=== PATIENT | male | born 1965 | race Two or more races ===

== ENCOUNTER 2019-03-25 22:32 | Inpatient (IN) | payer MEDICAID ==
[~2019-03-25] VITALS: Ht 160 cm; Wt 85.3 kg
[2019-03-26] VITALS (7 sets, daily range): BP systolic 111–116; BP diastolic 50–69
--- NOTE | 2019-03-26 00:15 | NUR ---
MS CERTIFIED MEDICAL TECHNICIAN NOTE: PT ADMITTED FROM [facility] VIA [facility] WITH ADMITTING DIAGNOSIS OF PERINEAL ABSCESS. PT IS ALERT AND ORIENTED X3, BRUNEIAN SPEAKING ONLY. AT BEDSIDE. NO APPARENT DISTRESS AT THIS TIME. COMPLAINTS OF 5/10 PAIN OR PERINEAL AREA. ON ROOM AIR, NO SOB NOTED. VITAL SIGNS STABLE. PT HAS AN IV ON RIGHT FOREARM #20 INTACT AND PATENT, FLUSHING WELL. NO SIGNS/SYMPTOMS OF INFILTRATION NOTED. PERTINENT ASSESSMENTS DONE. REDNESS AND SWELLING NOTED ON PERINEAL AREA, PICTURE TAKEN AND PLACED ON CHART. PER SHE WILL BRING ALL BELONGINGS HOME. CALL LIGHT PLACED WITHIN REACH. KEPT CLEAN, DRY AND COMFORTABLE. SAFETY AND FALL PRECAUTIONS OBSERVED AND MAINTAINED. WILL CONTINUE TO MONITOR PT.
[2019-03-26] MEDS ORDERED: IV NS 0.9% 1,000 ML IV PRN ×2 (01:36→16:09)
[2019-03-26] MEDS ORDERED: MAGNESIUM HYDROXIDE 30 ML UDC PO PRN (02:00)
[2019-03-26] MEDS ORDERED: HYDROCODONE/APAP 5/325MG 1 EACH TABLET PO PRN (02:00)
[2019-03-26] MEDS ORDERED: Z GUARD REMEDY 2 OZ OINT TP PRN (02:00)
[2019-03-26] MEDS ORDERED: ACETAMINOPHEN 325 MG TABLET PO PRN (02:00)
[2019-03-26] MEDS ORDERED: MAG HYDROX/AL HYDROX/SIMETH 30 ML UDC PO PRN (02:00)
[2019-03-26] MEDS ORDERED: ONDANSETRON HCL/PF 4 MG/2 ML VIAL IVP PRN (02:00)
[2019-03-26] MEDS ORDERED: HYDROCODONE/APAP 10/325MG 1 EA TABLET PO PRN (02:00)
[2019-03-26] MEDS ORDERED: VANCOMYCIN 1 GM VIAL ONE (02:08)
[2019-03-26] MEDS ORDERED: PIPERACILLIN /TAZOBACTAM 3.375 G VIAL IV ONE (02:09)
[2019-03-26] MEDS ORDERED: VANCOMYCIN 1 GM in IV D5W 250ml IV ONE (02:30)
[2019-03-26] MEDS ORDERED: PIPERACILLIN /TAZOBACTAM 3.375 G in IV D5W 50 ML IV ONE (02:30)
[2019-03-26] MEDS: MORPHINE SULFATE INJ 2 MG/ML DISP.SYRIN IV PRN ×3 (04:22→21:22)
[2019-03-26] MEDS ORDERED: PIPERACILLIN /TAZOBACTAM 3.375 G in IV D5W 50 ML IV SCH (06:00)
--- NOTE | 2019-03-26 06:36 | NUR ---
MS RN NOTE: NO CHANGES NOTED THROUGHOUT THE SHIFT. AT BEDSIDE. NO APPARENT DISTRESS NOTED. DENIES PAIN AND DISCOMFORT AT THIS TIME. ON ROOM AIR, SATURATING WELL. IV ON LEFT FOREARM #20 INTACT AND PATENT, IVF INFUSING WELL. KEPT CLEAN, DRY AND COMFORTABLE. ALL NEEDS ATTENDED. WILL ENDORSE TO DAY SHIFT RN FOR CONTINUITY OF CARE
[2019-03-26] MEDS ORDERED: FEE PK DOSING 1 MIN EA MC ONE (07:06)
[2019-03-26 07:25] LABS: BASOPHILS % (AUTO) 0.1 % (0.0-2.0); EOSINOPHILS % (AUTO) 0.7 % (0.0-6.0); HEMATOCRIT 37 % (39-51); HEMOGLOBIN 12.3 g/dL (13.5-17.5); LYMPHOCYTES # (AUTO) 1.5 /CMM (0.8-4.8); LYMPHOCYTES % (AUTO) 12.4 % (20.0-44.0); MEAN CORPUSCULAR HGB CONC 34 g/dl (31.0-36.0); MEAN CORPUSCULAR VOLUME 85 fL (80-96); MONOCYTES % (AUTO) 8.7 % (2.0-12.0); NEUTROPHILS # (AUTO) 9.2 /CMM (1.8-8.9); NEUTROPHILS % (AUTO) 78.1 % (43.0-81.0); PLATELET COUNT (AUTO) 183 /CMM (150-450); RED BLOOD CELL COUNT(AUTO) 4.32 MIL/uL (4.5-6.0); WHITE BLOOD COUNT (AUTO) 11.8 K/uL (4.3-11.0)
[2019-03-26 07:35] LABS: ALBUMIN 3.2 g/dL (3.4-5.0); CALCIUM, SERUM 8.3 mg/dL (8.5-10.1); CREATININE 0.8 mg/dL (0.6-1.3); MAGNESIUM 1.9 mg/dL (1.8-2.4); POTASSIUM 3.9 mmol/L (3.5-5.1); TOTAL PROTEIN, SERUM 6.9 g/dL (6.4-8.2)
[2019-03-26 07:36] LABS: THYROID STIMULATING HORMONE 0.839 uIU/mL (0.358-3.74)
--- NOTE | 2019-03-26 08:08 | NUR ---
MS RN NOTE PATIENT IN BED , ALERT , ORIENTED X3, NO SOB NOTED AT THIS TIME RT FA AND RT HAND IV INTACT, ON IVF ORDERED, UA COLLECTED ORDERED , BED IN LOWEST AND LOCKED POSITION , CALL LIGHT WITHIN REACH , PLAN OF CARE DISCUSSED WITH PATIENT ,FAMILY AT BEDSIDE ON NPO STATUS, WILL CONT TO MONITOR
--- NOTE | 2019-03-26 09:55 | NUR ---
MS RN NOTE UNABLE TO DO ZOSYN NOT AVAILABLE SPOKE WITH JUAN PHARMACIST STATED WILL BRING IT
--- NOTE | 2019-03-26 09:58 | NUR ---
MS RN NOTE ENDORSED CARE TO TONIE SMITH
[2019-03-26] MEDS: VANCOMYCIN 1 GM in IV D5W 250 ML IV SCH ×2 (11:02→17:58)
[2019-03-26] MEDS: PIPERACILLIN /TAZOBACTAM 3.375 G in IV D5W 100 ML IV SCH ×2 (11:18→16:43)
--- NOTE | 2019-03-26 11:19 | NUR ---
alert, oriented, and ambulatory, complained of pain, in perineal area, MSO4 given by previous nurse when the care taken over. Remains NPO, with ivf running, for now, abx ivpb given, in preparation of possible surgery
[2019-03-26 12:00] LABS: APPEARANCE,URINE Clear (CLEAR); BILIRUBIN,URINE Negative (NEGATIVE); BLOOD, URINE Negative Ery/uL (NEGATIVE); COLOR,URINE Yellow (YELLOW); KETONES,URINE Negative (NEGATIVE); LEUKOCYTE ESTERASE ,URINE Negative (NEGATIVE); NITRITE, URINE Negative (NEGATIVE); PH,URINE 6.5 (5.0-8.0); PROTEIN,URINE Negative (NEGATIVE); UGLUCOSE Negative (NEGATIVE); UROBILINOGEN,URINE 0.2 EU/dL (0.2)
--- NOTE | 2019-03-26 16:40 | NUR ---
Seen by FAMILY AND CONSUMER SCIENCES TEACHER, start patient on regular diet right now. Continues with IVF, rate now at 50cc per hour.
[2019-03-26] MEDS ORDERED: CEFTRIAXONE 1 G in IV NS 0.9% 100 ML IV SCH (20:00)
--- NOTE | 2019-03-26 20:00 | NUR ---
ms rn notes received pts in bed awake alert and verbally responsive ,moldovan speaking , at bedside updated with pts current condition .no sob no distress noted ,pts on r/a sating 98% ,all needs attended too call light within reach , all due meds given as ordered. pts on ivf of ns at 50cc/hr infusing well . due pain medication given as ordered , spoke to dr ro with order pts is on clear diet and npo post mn instructed to pts ,pts for insicion and drainage of ciara anal abcess. consent for surgery obtained from the pts,.v/s stable afebrile , will continue to monitor pts.
[2019-03-26] MEDS ORDERED: METRONIDAZOLE 500MG/ NS 100ML 500 MG in PREMIX 1 EA IV SCH (21:00)
[2019-03-27] MEDS: PIPERACILLIN /TAZOBACTAM 3.375 G in IV D5W 100 ML IV SCH ×4 (00:19→23:25)
[2019-03-27 04:00] VITALS: BP 106/61
--- NOTE | 2019-03-27 05:30 | NUR ---
MS RN NOTES SEEN AND EXAMINE BY DR WONG SAID FOR 1.D OF PERIANAL ABCESS (rIGHT) today at 6pm , pts on npo ,consent signed by pts.will endorse to rn day shift for continuity of care.
--- NOTE | 2019-03-27 07:25 | NUR ---
MS RN OPENING NOTE RECEIVED REPORT FROM [facility] SHIFT NURSE. PT AWAKE IN BED, ALERT AND ORIENTED X 4, AMBULATORY, ON ROOM AIR, SATURATING WELL, NO SIGNS OF RESPIRATORY DISTRESS NOTED. INTRODUCED SELF TO PT AND PLAN OF CARE. BED IN LOW POSITION, LOCKED, CALL LIGHT WITHIN REACH.
[2019-03-27 07:28] LABS: BASOPHILS # (AUTO) 0.1 /CMM (0.0-0.2); BASOPHILS % (AUTO) 0.7 % (0.0-2.0); EOSINOPHILS % (AUTO) 0.5 % (0.0-6.0); HEMATOCRIT 36 % (39-51); HEMOGLOBIN 12.1 g/dL (13.5-17.5); LYMPHOCYTES # (AUTO) 1.3 /CMM (0.8-4.8); LYMPHOCYTES % (AUTO) 11.2 % (20.0-44.0); MEAN CORPUSCULAR HGB CONC 34 g/dl (31.0-36.0); MEAN CORPUSCULAR VOLUME 85 fL (80-96); MONOCYTES # (AUTO) 0.9 /CMM (0.1-1.30); MONOCYTES % (AUTO) 8.1 % (2.0-12.0); NEUTROPHILS # (AUTO) 9.1 /CMM (1.8-8.9); NEUTROPHILS % (AUTO) 79.5 % (43.0-81.0); PLATELET COUNT (AUTO) 189 /CMM (150-450); RED BLOOD CELL COUNT(AUTO) 4.22 MIL/uL (4.5-6.0); WHITE BLOOD COUNT (AUTO) 11.4 K/uL (4.3-11.0)
[2019-03-27 07:37] LABS: CALCIUM, SERUM 8.4 mg/dL (8.5-10.1); CREATININE 0.8 mg/dL (0.6-1.3); POTASSIUM 3.9 mmol/L (3.5-5.1)
[2019-03-27 08:00] VITALS: BP 119/63
[2019-03-27 12:00] VITALS: BP 104/70
[2019-03-27 16:00] VITALS: BP 97/52
--- NOTE | 2019-03-27 17:38 | NUR ---
PT TAKEN VIA GURNEY TO OR FOR I+D, ALL CONSENTS SIGNED. PT LEFT UNIT IN STABLE CONDITION.
[2019-03-27] MEDS ORDERED: FENTANYL PF 100MCG/2ML AMPUL ONE (17:58)
[2019-03-27] MEDS ORDERED: MIDAZOLAM HCL 2 MG/2ML VIAL ONE (17:58)
[2019-03-27] MEDS ORDERED: BUPIVACAINE MPF W/EPI 0.25% 30 ML VIAL ONE (18:02)
[2019-03-27] MEDS ORDERED: ANESTHESIA TRAY IN PYXIS 1 EA TRAY MC ONE (18:02)
[2019-03-27] MEDS ORDERED: LIDOCAINE HCL/PF 1% 30 ML SDV ONE (18:02)
--- NOTE | 2019-03-27 18:54 | NUR ---
MS RN CLOSING NOTE ENDORSED TO NOC SHIFT NURSE, PT STILL ABSENT FROM UNIT.
[2019-03-27] MEDS ORDERED: HYDROCODONE/APAP 5/325MG 1 EACH TABLET PO PRN (19:30)
[2019-03-27] MEDS ORDERED: MORPHINE SULFATE INJ 2 MG/ML DISP.SYRIN IV PRN (19:30)
--- NOTE | 2019-03-27 19:30 | NUR ---
PRODUCT DEVELOPMENT WORKER OPENING NOTE RECEIVED REPORT FROM MORNING NURSE, PATIENT STILL NOT IN ROOM
[2019-03-27 20:00] VITALS: BP 113/63
--- NOTE | 2019-03-27 20:00 | NUR ---
SCHOOL PSYCHOLOGIST ASSISTANT NOTE PATIENT ARRIVED IN [facility]. A/O 3 WITH NO SIGN OF DISTRESS. PATIENT IS ON ROOM AIR WITH NO SOB. PATIENT STILL FEELS A BIT OUT OF IT DUE TO THE ANAESTHESIA BUT OVERALL IN NO DISTRESS ON BRP. HAS A MIDLINE ON THE RIGHT UA PATENT AND FLUSHING PROPERLY AND A IV ON THE RIGHT HAND G#20 WITH NS RUNNING AT 50ML/HR. ALL SAFETY PRECAUTIONS APPLIED BED LOCKED IN LOW POSITION, CALL LIGHT WITHIN REACH, AND SIDE RAILS UP X2. WILL CONTINUE TO MONITOR.
[2019-03-28 04:00] VITALS: BP_SYST 100; BP_SYST 151; BP_DIAS 55; BP_DIAS 96
[2019-03-28 07:03] LABS: BASOPHILS % (AUTO) 0.3 % (0.0-2.0); EOSINOPHILS % (AUTO) 2.6 % (0.0-6.0); HEMATOCRIT 35 % (39-51); HEMOGLOBIN 11.8 g/dL (13.5-17.5); LYMPHOCYTES # (AUTO) 1.4 /CMM (0.8-4.8); LYMPHOCYTES % (AUTO) 19.7 % (20.0-44.0); MEAN CORPUSCULAR HGB CONC 34 g/dl (31.0-36.0); MEAN CORPUSCULAR VOLUME 86 fL (80-96); MONOCYTES # (AUTO) 0.6 /CMM (0.1-1.30); NEUTROPHILS # (AUTO) 4.8 /CMM (1.8-8.9); NEUTROPHILS % (AUTO) 68.4 % (43.0-81.0); PLATELET COUNT (AUTO) 195 /CMM (150-450)
--- NOTE | 2019-03-28 07:03 | NUR ---
MS RN CLOSING NOTE PATIENT LAYING IN BED WITH NO DISTRESS, NO PAIN, AND NO DISCOMFORT. ALL SAFETY PRECAUTION APPLIED. ENDORSED TO MORNING NURSE.
[2019-03-28 07:18] LABS: CALCIUM, SERUM 8.2 mg/dL (8.5-10.1); CREATININE 0.8 mg/dL (0.6-1.3); MAGNESIUM 2.2 mg/dL (1.8-2.4); PHOSPHORUS 3.2 mg/dL (2.5-4.9); POTASSIUM 4.2 mmol/L (3.5-5.1)
--- NOTE | 2019-03-28 07:30 | NUR ---
MS RN OPENING NOTE RECEIVED REPORT AT BEDSIDE. PT A/OX4. NO SIGN OF RESPIRATORY DISTRESS, SOB AND PAIN NOTED AT THIS TIME. RESPIRATION EVEN AND UNLABORED. AT BEDSIDE. SAFETY MEASURE IN PLACE. BED LOCKED AND LOW, SIDE RAILS UPX2, CALL LIGHT WITHIN REACH. WILL CONT' TO MONITOR CLOSELY.
[2019-03-28 08:00] VITALS: BP 111/66
[2019-03-28] MEDS: PIPERACILLIN /TAZOBACTAM 3.375 G in IV D5W 100 ML IV SCH ×2 (08:06→15:06)
[2019-03-28] MEDS ORDERED: AMOX-430 PO (12:44)
[2019-03-28] MEDS ORDERED: HYDR-3972 PO (12:44)
--- NOTE | 2019-03-28 13:30 | NUR ---
MS RN NOTE PATIENT SAT ON SITZ BATH FOR 30MIN. DRESSING CHANGED, ABDOMINAL DRESSING PLACED. NO SIGN OF BLEEDING.
[2019-03-28 16:00] VITALS: BP 131/77
--- NOTE | 2019-03-28 19:59 | NUR ---
MS RN NOTES ASSISTED DIPESH RN TO REMOVE PACKING OF WOUND , NO BLEEDING NOTED. AT BEDSIDE.
--- NOTE | 2019-03-28 19:59 | NUR ---
packing on wound removed ,cleansed with NS ,NO BLEEDING,TOLERATED PROCEDURE. AT BEDSIDE.DISCHARGE INSTRUCTION PROVIDED BY PRIMARY RN.
--- NOTE | 2019-03-28 20:01 | NUR ---
WANDA VÁZQUEZ AT BEDSIDE .
--- NOTE | 2019-03-28 20:05 | NUR ---
MS RN CLOSING NOTE PT WAITED TO FINISH IV ZOSYN BEFORE GETTING DISCHARGED. PERIANAL DRESSING REMOVED BY [facility] NURSES DIPESH AND CLAY PER DOCTOR MARVIN'S ORDER. NO SIGN OF BLEEDING. ABDOMINAL PAD APPLIED AND PAIN MED GIVEN. PT DISCHARGED TO HOME ACCOMPANIED BY HIS AND DAUGHTER IN LAW.
--- NOTE | 2019-03-28 20:50 | NUR ---
ms rn notes pts left the hospital at 205hrs accpd by ,discharged home in stable condition ,discharge home medication and instruction given by rn day shift pts verbalizing understanding.
== END 2019-03-28 20:50 | disposition home or self-care (01) | DRG 254 ==
LOC: MEDSG1 03-26 00:07
PROVIDERS: ADMIT Registered Nurse; ATTEND Registered Nurse
PROC: 0J9B3ZZ Drainage of Perineum Subcutaneous Tissue and Fascia, Percutaneous Approach (ICD-10-PCS; principal; 2019-03-27)
DX: K61.2 Anorectal abscess (principal); E66.9 Obesity, unspecified; Z68.33 Body mass index [BMI] 33.0-33.9, adult; F17.210 Nicotine dependence, cigarettes, uncomplicated
CPT/HCPCS: 36415; 80048-TC; 80053-TC; 80061-TC; 80202-TC; 81000-TC; 83735-TC; 84100-TC; 84443-TC; 85025-TC; 87040-TC; 87070-TC; 87081-TC; 87086-TC; 87186-TC; A4216; A6253; G0378; J0696; J1885; J2250; J2270; J2543; J2704; J3010; J3370; J3490; J7030; J7050; J7060